=== PATIENT | female | born 1945 | race Caucasian/White ===

== ENCOUNTER 2016-09-06 20:06 | Inpatient (IN) ==
[2016-09-06] MEDS ORDERED: DUONEB NEB STA (20:26)
--- NOTE | 2016-09-06 20:45 | ED.PDOC ---
General ED Provider: Dr. ENDER ROBIN Chief Complaint: Cough Stated Complaint: Patient is a 71 year old female who complains of cough productive of brown and bloody sputum for one week. Also complains of fever. Time Seen by Physician: 20:43 Mode of Arrival: Walk-In Information Source: Patient, Family Exam Limitations: No limitations Primary Care Provider: VALERIY ELAM Nursing and Triage Documentation Reviewed and Agree: Yes Respiratory Complaint Exam - Respiratory Complaint/Exam Onset/Duration: 1 week Symptoms Are: Still present Timing: Constant Initial Severity: Mild Current Severity: Moderate Location: Chest Character: Reports: Productive cough Aggravating: Reports: Weather Alleviating: Reports: None Associated Signs and Symptoms: Reports: Fever, Chills, URI. Denies: Rapid breathing, Dyspnea, Chest pain, Pleuritic chest pain, Wheezing, Hemoptysis, Dizziness, Calf pain, Calf swelling, Edema, Nasal congestion, Hoarseness, Sinus discomfort, Vomiting, Sore throat, Weight loss, Decreased oral intake, Increased thirst, Increased appetite, Increased urination Related History: Denies: Similar episode, Seasonal allergies History of Healthcare-Acquired Pneumonia: No Related Surgical History: Reports: None Pulmonary Embolism Risk Factors: None Cardiac Risk Factors: Reports: None Pseudomonas Risk Factors: Reports: None Status Asthmaticus Risk Factors: Reports: None Home Oxygen Use: No Recent Stress Test: No Recent Echo/LV Function: No Current Antibiotic Use: No Current Asthma Medication Use: No Respiratory Distress: None Inadequate Respiratory Effort: No Dysphagia Present: No Stridor Present: No JVD Present: No Retractions: Not Present Diminished Breath Sounds: No Sinus Tenderness: None Grunting Respirations: No Kussmaul Respirations: No Differential Diagnoses: Pneumonia, Bronchitis Review of Systems - Review Of Systems Constitutional: Reports: Chills, Fever Eyes: Reports: No symptoms Ears, Nose, Mouth, Throat: Reports: No symptoms Respiratory: Reports: Cough Cardiac: Reports: No symptoms GI: Reports: No symptoms : Reports: No symptoms Musculoskeletal: Reports: No symptoms Skin: Reports: No symptoms Neurological: Reports: No symptoms Endocrine: Reports: No symptoms Hematologic/Lymphatic: Reports: No symptoms All Other Systems: Reviewed and Negative Past Medical History - Past Medical History Endocrine: Reports: None Cardiovascular: Reports: Hypertension Respiratory: Reports: None Hematological: Reports: None Gastrointestinal: Reports: None Genitourinary: Reports: None Neuro/Psych: Reports: None Musculoskeletal: Reports: None Cancer: Reports: None Last Menstrual Period: NA Other Pertinent Past Medical History: Obesity - Surgical History General Surgical History: Reports: , Appendectomy, Cholecystectomy, Orthopedic (CARPAL TUNNEL, TRIGGER RELEASE) - Family History Family History: Reports: None - Social History Smoking Status: Never smoker Hx Substance Use: No Alcohol Screening: None - Immunizations Tetanus Shot up to Date: No Physical Exam - Physical Exam Appearance: Ill-appearing, Obese Ill-appearing: Moderate Eyes: AKILAH, EOMI, Conjunctiva clear Neck: Supple Respiratory: Rhonchi (on the right base ) Cardiovascular: No rub, No murmur, Tachycardia Musculoskeletal: Normal strength, ROM intact, No edema, No calf tenderness Skin: Warm, Dry, Normal color Neurological: Sensation intact, Motor intact, Cranial nerves intact, Alert, Oriented Psychiatric: Anxious Interpretation - Radiology Interpretation Radiology Interpretation By: Radiologist Radiology Results: Positive Exam Interpreted: CXR (Right lower lobe pneumonia) - Stripe Matcher Rate: Tachy Rhythm: Sinus Ectopy: None - EKG Interpretation Time of EKG #1: 20:58 Rate: Tachy Rhythm: Sinus Ectopy: None [place]: NL ST Segment: Normal Interpretation: sinus Tachy, left ventricular Hypertrophy. Re-Evaluation - Re-Evaluation Time of Re-Evaluation: 22:56 Status: Improved Vital Signs Stable: Yes Physician Notification - Case Discussed Physician Notified: Dr Elam Time of Notification: 22:57 Critical Care Note - Critical Care Note Total Time (mins): 30 Course - Course Hematology/Chemistry: 09/06/16 20:50 09/06/16 20:50 Orders, Labs, Meds: Lab Review 09/06/16 09/06/16 09/06/16 20:25 20:50 22:10 WBC 35.24 H RBC 4.83 Hgb 13.3 Hct 40.6 MCV 84.1 MCH 27.5 MCHC 32.8 RDW Coeff of Serena 14.5 Plt Count 253 Neutrophils % (Manual) 94.0 H Lymphocytes % (Manual) 3.0 L Monocytes % (Manual) 3.0 D-Dimer (Manual) 1239.63 Puncture Site Lb O2 Saturation 93.0 L ABG pH 7.408 ABG pCO2 33.1 L ABG pO2 64.0 L ABG HCO3 20.9 L ABG Total CO2 22 ABG Base Excess -4 L Sonido Test + FiO2 % 21.0 Sodium 139 Potassium 3.4 L Chloride 105 Carbon Dioxide 20 L Anion Gap 17.4 BUN 21 H Creatinine 1.45 H Estimated GFR (MDRD) 36.00 BUN/Creatinine Ratio 14.48 Glucose 155 H Lactic Acid 31.8 H Calcium 9.3 Total Bilirubin 0.85 AST 23 ALT 20 Alkaline Phosphatase 74 Total Creatine Kinase 151 CK-MB (CK-2) 2.6 CK-MB (CK-2) % 1.69615 Troponin I 0.0230 B-Natriuretic Peptide 72 Total Protein 7.8 Albumin 3.2 L Globulin 4.6 Albumin/Globulin Ratio 0.70 Procalcitonin 5.09 Urine Color Yellow Urine Clarity Slightly Urine pH 5.5 Ur Specific Downey 1.020 Urine Protein 2+ Urine Glucose (UA) Negative Urine Ketones Negative Urine Blood Negative Urine Nitrite Negative Urine Bilirubin 1+ Urine Urobilinogen 1.0 Ur Leukocyte Esterase Trace Urine Microscopic WBC 2-5 Ur Squamous Epith Cells 2-5 Amorphous Sediment 2+ Urine Bacteria 1+ Influenza A (Rapid) Negative Influenza B (Rapid) Negative Orders Category Date Time Status ADMIT PATIENT INPATIENT .TO SCU (MONITORED BED) ADMISSION 09/06/16 22:47 Ordered ABG DRAW REQUEST Stat CARDIO 09/06/16 20:25 Ordered EKG-(ED ONLY) Stat CARDIO 09/06/16 20:40 Ordered NEBULIZER TREATMENT Routine CARDIO 09/06/16 22:51 Ordered NEBULIZER TREATMENT Stat CARDIO 09/06/16 20:27 Ordered OXYGEN Routine CARDIO 09/06/16 22:47 Ordered ACTIVITY .Early Mobilization for VTE Prevention CARE 09/06/16 22:48 Ordered INTAKE & OUTPUT Q8HR CARE 09/06/16 22:47 Ordered TELEMETRY MONITORING TELE CARE 09/06/16 22:48 Ordered VITAL SIGNS Q4HR CARE 09/06/16 22:48 Ordered REGULAR DIET DIETARY 09/06/16 Breakfast Ordered ED IV/MEDIPORT/POWERPORT .ONCE EMERGENCY 09/06/16 20:25 Active ABG Stat LAB 09/06/16 20:25 Completed B-TYPE NATRIURETIC PEPTIDE Stat LAB 09/06/16 20:50 Completed BASIC METABOLIC PANEL DAILY@0600 LAB 09/07/16 06:00 Ordered BASIC METABOLIC PANEL DAILY@0600 LAB 09/08/16 06:00 Ordered BASIC METABOLIC PANEL DAILY@0600 LAB 09/09/16 06:00 Ordered BASIC METABOLIC PANEL DAILY@0600 LAB 09/10/16 06:00 Ordered BASIC METABOLIC PANEL DAILY@0600 LAB 09/11/16 06:00 Ordered BASIC METABOLIC PANEL DAILY@0600 LAB 09/12/16 06:00 Ordered BASIC METABOLIC PANEL DAILY@0600 LAB 09/13/16 06:00 Ordered BASIC METABOLIC PANEL DAILY@0600 LAB 09/14/16 06:00 Ordered BASIC METABOLIC PANEL DAILY@0600 LAB 09/15/16 06:00 Ordered BASIC METABOLIC PANEL DAILY@0600 LAB 09/16/16 06:00 Ordered BASIC METABOLIC PANEL DAILY@0600 LAB 09/17/16 06:00 Ordered BASIC METABOLIC PANEL DAILY@0600 LAB 09/18/16 06:00 Ordered BASIC METABOLIC PANEL DAILY@0600 LAB 09/19/16 06:00 Ordered BASIC METABOLIC PANEL DAILY@0600 LAB 09/20/16 06:00 Ordered BASIC METABOLIC PANEL DAILY@0600 LAB 09/21/16 06:00 Ordered BASIC METABOLIC PANEL DAILY@0600 LAB 09/22/16 06:00 Ordered BASIC METABOLIC PANEL DAILY@0600 LAB 09/23/16 06:00 Ordered BASIC METABOLIC PANEL DAILY@0600 LAB 09/24/16 06:00 Ordered BASIC METABOLIC PANEL DAILY@0600 LAB 09/25/16 06:00 Ordered BASIC METABOLIC PANEL DAILY@06 LAB 09/26/16 06:00 Ordered BLOOD CULTURE Stat LAB 09/06/16 20:50 Received CBC W/ AUTO DIFF DAILY@06 LAB 09/07/16 06:00 Ordered CBC W/ AUTO DIFF DAILY@0600 LAB 09/08/16 06:00 Ordered CBC W/ AUTO DIFF DAILY@06 LAB 09/09/16 06:00 Ordered CBC W/ AUTO DIFF DAILY@0600 LAB 09/10/16 06:00 Ordered CBC W/ AUTO DIFF DAILY@0600 LAB 09/11/16 06:00 Ordered CBC W/ AUTO DIFF DAILY@0600 LAB 09/12/16 06:00 Ordered CBC W/ AUTO DIFF DAILY@06 LAB 09/13/16 06:00 Ordered CBC W/ AUTO DIFF DAILY@0600 LAB 09/14/16 06:00 Ordered CBC W/ AUTO DIFF DAILY@0600 LAB 09/15/16 06:00 Ordered CBC W/ AUTO DIFF DAILY@0600 LAB 09/16/16 06:00 Ordered CBC W/ AUTO DIFF DAILY@06 LAB 09/17/16 06:00 Ordered CBC W/ AUTO DIFF DAILY@0600 LAB 09/18/16 06:00 Ordered CBC W/ AUTO DIFF DAILY@0600 LAB 09/19/16 06:00 Ordered CBC W/ AUTO DIFF DAILY@0600 LAB 09/20/16 06:00 Ordered CBC W/ AUTO DIFF DAILY@0600 LAB 09/21/16 06:00 Ordered CBC W/ AUTO DIFF DAILY@0600 LAB 09/22/16 06:00 Ordered CBC W/ AUTO DIFF DAILY@0600 LAB 09/23/16 06:00 Ordered CBC W/ AUTO DIFF DAILY@0600 LAB 09/24/16 06:00 Ordered CBC W/ AUTO DIFF DAILY@0600 LAB 09/25/16 06:00 Ordered CBC W/ AUTO DIFF DAILY@0600 LAB 09/26/16 06:00 Ordered CBC W/ AUTO DIFF Stat LAB 09/06/16 20:50 Completed COMPREHENSIVE METABOLIC PANEL Stat LAB 09/06/16 20:50 Completed CREATINE KINASE Stat LAB 09/06/16 20:50 Completed D-DIMER Stat LAB 09/06/16 20:50 Completed FLU A & B RAPID TEST [RAPID FLU A/B] Stat LAB 09/06/16 22:10 Completed LACTIC ACID Stat LAB 09/06/16 20:50 Completed MANUAL DIFFERENTIAL Stat LAB 09/06/16 20:50 Completed PROCALCITONIN Stat LAB 09/06/16 20:50 Completed TROPONIN I Stat LAB 09/06/16 20:50 Completed URINALYSIS C & S IF INDICATED Stat LAB 09/06/16 22:10 Completed URINE CULTURE Stat LAB 09/06/16 22:24 Received 0.9 % Sodium Chloride [Saline Flush] MEDS 09/06/16 20:25 Ordered 1 syr IVF PRN PRN Acetaminophen [Tylenol] MEDS 09/06/16 22:47 Ordered 650 mg PO Q4H PRN Enoxaparin Sodium [Lovenox] MEDS 09/06/16 23:00 Ordered 110 mg SUBCUT Q12HR Ipratropium/Albuterol Neb [Duoneb] MEDS 09/06/16 20:26 Discontinued 1 vial NEB ONCE STA Ipratropium/Albuterol Neb [Duoneb] MEDS 09/07/16 06:00 Ordered 1 vial NEB RTQID Levofloxacin/D5w [Levaquin] 150 ml MEDS 09/06/16 21:51 Discontinued IV .STK-MED Levofloxacin/D5w [Levaquin] 500 mg MEDS 09/07/16 21:00 Ordered Premix 100 ml D5w 1 bag IV DAILY Levofloxacin/D5w [Levaquin] 750 mg MEDS 09/06/16 21:19 Discontinued Premix 150 ml D5w 1 bag IV ONCE Ondansetron HCl/Pf [Zofran 4 mg/2 ml] MEDS 09/06/16 22:47 Ordered 4 mg IVP Q6H PRN Sodium Chloride 0.9% [Sodium Chloride] 1,000 ml MEDS 09/06/16 23:00 Ordered IV 150 mls/hr Sodium Chloride 0.9% [Sodium Chloride] 1,000 ml MEDS 09/06/16 21:54 Discontinued IV BOLUS RESUSCITATION STATUS Routine OTHERS 09/06/16 22:47 Ordered CHEST, 2 VIEWS PA & LAT Stat RADS 09/06/16 20:25 Completed Medications Generic Name Dose Route Start Last Admin Trade Name Freq PRN Reason Stop Dose Admin Sodium Chloride 1 syr 09/06/16 20:25 09/06/16 21:46 Saline Flush IVF 1 syr PRN PRN Administration To flush IV Discontinued Medications Generic Name Dose Route Start Last Admin Trade Name Freq PRN Reason Stop Dose Admin Albuterol/Ipratropium 1 vial 09/06/16 20:26 09/06/16 20:33 Duoneb NEB 09/06/16 20:27 1 vial ONCE STA Administration Levofloxacin/Dextrose 750 mg/ 150 mls @ 100 mls/hr 09/06/16 21:19 09/06/16 21 :46 Dextrose IV 09/06/16 22:48 100 mls/hr ONCE STA Administration Sodium Chloride 1,000 mls @ 1,000 mls/hr 09/06/16 21:54 09/06/16 22:04 Sodium Chloride IV 09/06/16 22:53 1,000 mls/hr BOLUS STA Administration Vital Signs: Temp Pulse Resp BP Pulse Ox 09/06/16 20:07 99.7 F H 126 H 24 131/74 91 L Departure - Departure Time of Disposition: 23:05 Disposition: ADMITTED INPATIENT Discharge Problem: Right lower lobe pneumonia Qualifiers: Pneumonia type: due to unspecified organism Qualifier Code: (J18.1) Lobar pneumonia, unspecified organism Sepsis Qualifiers: Sepsis type: sepsis due to unspecified organism Qualifier Code: (A41.9) Sepsis , unspecified organism Condition: Serious Pt referred to PMD for follow-up: No (Admitted ) Allergies/Adverse Reactions: Allergies No Known Allergies Allergy (Verified 09/06/16 20:17) Home Medications: Ambulatory Orders Aspirin/Calcium Carbonate/Mag [Aspirin Buffered 325 mg Tab] 325 mg PO QAM Cholecalciferol (Vitamin D3) [Vitamin D3] 1,000 mg PO BID 10/17/13 Enalapril Maleate [Vasotec] 10 mg PO QAM 10/17/13 Pantoprazole Sodium [Protonix] 40 mg PO QAM 10/17/13 Triamterene/Hydrochlorothiazid [Dyazide] 25 - 37.5 mg PO QAM 10/17/13 Alprazolam [Xanax] 0.5 mg PO DAILY 09/06/16 Venlafaxine HCl [Effexor] 75 mg PO DAILY 09/06/16 Disposition Discussed With: Patient, Family
[2016-09-06 20:52] LABS: ABG BASE EXCESS -4 (-2.0-2.0); ABG HCO3 20.9 (22.0-26.0); ABG PCO2 33.1 mmHg (35-45); ABG PH 7.408 (7.35-7.45); ABG TCO2 22 (22.0-28.0)
[2016-09-06 20:58] LABS: HEMATOCRIT 40.6 % (37.0-47.0); HEMOGLOBIN 13.3 g/dl (12.0-16.0); MEAN CORPUSCULAR HEMOGLOBIN 27.5 pg (27.0-31.0); MEAN CORPUSCULAR HGB CONC 32.8 (31.8-35.4); MEAN CORPUSCULAR VOLUME 84.1 fl (81.0-99.0); PLATELET COUNT 253 10^3/uL (140-440); RED BLOOD COUNT 4.83 10^6/ul (4.20-5.40); WHITE BLOOD COUNT 35.24 K/ul (4.6-10.2)
[2016-09-06 21:07] LABS: ANISOCYTOSIS NOT PRESENT (NOT PRESENT)
[2016-09-06] MEDS ORDERED: LEVAQUIN 750 MG in PREMIX 150 ML D5W 1 BAG IV STA (21:19)
--- NOTE | 2016-09-06 21:33 | DI ---
Exam: Chest two-view History: Cough FINDINGS: Normal cardiomediastinal contours. Normal pulmonary vasculature. Consolidative opacity of the anterior lateral right middle lobe. Atelectasis or consolidation in the left base. The uppe r lungs are clear. Normal cardiomediastinal contours. No acute chest wall abnormality. Impression: 1. Consolidative pneumonia in the right lung base 2. Atelectasis versus pneumonia in the left lung base.
[2016-09-06 21:34] LABS: ALBUMIN 3.2 g/dL (3.4-5.0); ALBUMIN/GLOBULIN RATIO 0.7; ANION GAP 17.4; BILIRUBIN,TOTAL 0.85 mg/dL (0.00-1.20); BUN/CREATININE RATIO 14.48; CALCIUM 9.3 mg/dL (8.2-10.2); CREATININE 1.45 mg/dL (0.60-1.30); POTASSIUM 3.4 mmol/L (3.5-5.10); TOTAL PROTEIN 7.8 g/dL (5.8-8.1); TROPONIN I 0.023 ng/ml (0.0000-0.4000)
[2016-09-06 21:35] LABS: CREATINE KINASE MB 2.6 ng/ml (0.0-3.6)
[2016-09-06] MEDS ORDERED: LEVAQUIN 150 ML IV ONE (21:51)
[2016-09-06] MEDS ORDERED: SODIUM CHLORIDE 1,000 ML IV STA (21:54)
[2016-09-06 22:17] LABS: BILIRUBIN,URINE 1+ (NEGATIVE); KETONES,URINE Negative (NEGATIVE); LEUKOCYTE ESTERASE ,URINE Trace (NEGATIVE); NITRITE,URINE Negative (NEGATIVE); PH,URINE 5.5 (5-9); PROTEIN,URINE 2+ (NEGATIVE); URINE, BLOOD Negative (NEGATIVE)
[2016-09-06 22:23] LABS: ADD URINE MICROSCOPIC YES
[2016-09-06 22:24] LABS: BACTERIA,URINE 1+ (NOT PRESENT)
[2016-09-06 22:28] LABS: FLU INTERNAL QC INTERNAL QC VALID; RAPID FLU A NEGATIVE (NEGATIVE); RAPID FLU B NEGATIVE (NEGATIVE)
[2016-09-06] MEDS ORDERED: ZOFRAN 4 MG/2 ML IVP PRN (22:47)
[2016-09-06] MEDS ORDERED: TYLENOL PO PRN (22:47)
[2016-09-06] MEDS ORDERED: LOVENOX SUBCUT SCH (23:00)
[2016-09-06 23:27] VITALS: BMI 47.0
[2016-09-07] MEDS ORDERED: LOVENOX ONE ×2 (01:42)
[2016-09-07 03:19] LABS: BASOPHILS # (AUTO) 0.1 K/uL (0-0.2); BASOPHILS % (AUTO) 0.3 % (0.0-3.0); HEMATOCRIT 37.4 % (37.0-47.0); HEMOGLOBIN 11.8 g/dl (12.0-16.0); IMMATURE GRANULOCYTE % (AUTO) 2.1 % (0.0-5.0); LYMPHOCYTES # (AUTO) 1.3 K/uL (0.60-3.4); LYMPHOCYTES % (AUTO) 4.5 (10.0-50.0); MEAN CORPUSCULAR HEMOGLOBIN 27.1 pg (27.0-31.0); MEAN CORPUSCULAR HGB CONC 31.6 (31.8-35.4); MONOCYTES % (AUTO) 3.4 (0-10); NEUTROPHILS # (AUTO) 26.7 K/ul (2.0-6.9); NEUTROPHILS % (AUTO) 89.7; PLATELET COUNT 210 10^3/uL (140-440); RED BLOOD COUNT 4.35 10^6/ul (4.20-5.40); WHITE BLOOD COUNT 29.77 K/ul (4.6-10.2)
[2016-09-07 03:35] LABS: ANION GAP 14.4; BUN/CREATININE RATIO 18.25; CALCIUM 8.6 mg/dL (8.2-10.2); CREATININE 1.26 mg/dL (0.60-1.30); POTASSIUM 3.4 mmol/L (3.5-5.10)
[2016-09-07] MEDS: SODIUM CHLORIDE 1,000 ML IV SCH ×3 (04:29→11:05)
[2016-09-07] MEDS: DUONEB NEB SCH ×4 (05:05→19:32)
[2016-09-07] MEDS: ASPIRIN EC PO SCH (08:40)
[2016-09-07] MEDS: VASOTEC PO SCH (08:41)
[2016-09-07] MEDS: PROTONIX PO SCH (08:41)
[2016-09-07] MEDS: VITAMIN D PO SCH ×2 (08:42→21:38)
[2016-09-07] MEDS: NON-FORMULARY MEDICATION (Venlafaxine Hcl 75 MG) PO SCH (08:42)
[2016-09-07] MEDS: XANAX PO SCH (08:42)
[2016-09-07] MEDS ORDERED: CHOLECALCIFEROL 1000 MG PO SCH (09:00)
[2016-09-07] MEDS ORDERED: LOVENOX SUBCUT SCH (09:00)
[2016-09-07] MEDS ORDERED: NON-FORMULARY MEDICATION (Enalapril Maleate [Vasotec] 10 MG) PO SCH ×22 (09:00)
--- NOTE | 2016-09-07 13:03 | NM ---
EXAM: Ventilation-perfusion lung scan HISTORY: Elevated D-dimer COMPARISON: Chest x-ray On 09/06/2016 showed right lung base consolidation. Left lung base atelecta sis versus pneumonia. TECHNIQUE: Patient was injected 5.1 mCi of technetium 99m labeled MAA intravenously. The patient wa s given 31.1 mCi of technetium 99m DTPA aerosol for ventilation imaging. FINDINGS: No segmental or subsegmental perfusion defect is identified. Aerosol distribution is homo geneous in both lung patel throughout. IMPRESSION: Normal VQ scan
[2016-09-07] MEDS ORDERED: VANCOMYCIN 2 GM in SODIUM CHLORIDE 500 ML IV STA (14:01)
[2016-09-07] MEDS ORDERED: AMBIEN PO PRN (19:41)
[2016-09-07] MEDS: LEVAQUIN 750 MG in PREMIX 150 ML D5W 1 BAG IV SCH (20:06)
[2016-09-07] MEDS ORDERED: LEVAQUIN 500 MG in PREMIX 100 ML D5W 1 BAG IV SCH (21:00)
[2016-09-08] MEDS: SODIUM CHLORIDE 1,000 ML IV SCH ×4 (00:05→15:46)
[2016-09-08] MEDS: DUONEB NEB SCH ×4 (05:21→20:09)
[2016-09-08 05:26] LABS: BASOPHILS # (AUTO) 0.1 K/uL (0-0.2); BASOPHILS % (AUTO) 0.3 % (0.0-3.0); EOSINOPHILS # (AUTO) 0.1 K/ul (0.0-0.7); EOSINOPHILS % (AUTO) 0.4 % (0.0-7.0); HEMATOCRIT 35.8 % (37.0-47.0); HEMOGLOBIN 11.5 g/dl (12.0-16.0); IMMATURE GRANULOCYTE % (AUTO) 0.6 % (0.0-5.0); LYMPHOCYTES # (AUTO) 1.2 K/uL (0.60-3.4); MEAN CORPUSCULAR HEMOGLOBIN 27.5 pg (27.0-31.0); MEAN CORPUSCULAR HGB CONC 32.1 (31.8-35.4); MEAN CORPUSCULAR VOLUME 85.6 fl (81.0-99.0); MONOCYTES # (AUTO) 0.4 K/uL (0.4-2.0); MONOCYTES % (AUTO) 2.5 (0-10); NEUTROPHILS # (AUTO) 15.2 K/ul (2.0-6.9); NEUTROPHILS % (AUTO) 89.2; PLATELET COUNT 209 10^3/uL (140-440); RED BLOOD COUNT 4.18 10^6/ul (4.20-5.40); WHITE BLOOD COUNT 16.98 K/ul (4.6-10.2)
[2016-09-08 05:39] LABS: ANION GAP 12.2; BUN/CREATININE RATIO 19.54; CALCIUM 8.4 mg/dL (8.2-10.2); CREATININE 0.87 mg/dL (0.60-1.30); POTASSIUM 3.2 mmol/L (3.5-5.10)
[2016-09-08] MEDS: PROTONIX PO SCH (05:48)
[2016-09-08] MEDS: VITAMIN D PO SCH ×2 (08:59→20:28)
[2016-09-08] MEDS: ASPIRIN EC PO SCH (08:59)
[2016-09-08] MEDS: XANAX PO SCH (09:00)
[2016-09-08] MEDS: VASOTEC PO SCH (09:00)
[2016-09-08] MEDS: LOVENOX SUBCUT SCH (09:00)
[2016-09-08] MEDS: VANCOMYCIN 750 MG in SODIUM CHLORIDE 250 ML IV SCH ×2 (09:02→21:49)
[2016-09-08] MEDS: NON-FORMULARY MEDICATION (Venlafaxine Hcl 75 MG) PO SCH (09:02)
--- NOTE | 2016-09-08 10:09 | HP ---
SOURCE: The source of this information is prior knowledge of the patient, review of her office records, her current chart as well as discussion with she and ER individuals; all see reliable. PATIENT PROFILE: The patient is a 71-year-0ld female resident of [place]; she was very cooperative. CHIEF COMPLAINT: "She has pneumonia." BRIEF HISTORY OF PRESENT ILLNESS: She was ill for about one week with nasal congestion and cough. She worsened, her family became very concerned when she had some hemoptysis and they forced her to come to the ER. There, she was found to have right and left lower lobe infiltrate, leukocytosis to 35,000. A lactic acid of 31.8, potassium 3.4, GFR of 36, D. dimer 1,239, procalcitonin at 5.09. She did have influenza A and B that were negative, a urinalysis that revealed only 2 to 5 WBCs and her vital signs were stable. She was not hypoxic. She was therefore admitted for community acquired pneumonia with potential associated sepsis. Initial plan was to give fluid bolus, culture urine and blood, monitor blood pressure in response to the fluids closely; start empiric antibiotics. PAST HISTORY: CHILDHOOD: Unremarkable. ALLERGIES/INTOLERANCE: LEXAPRO (FATIGUE). MEDICATIONS: (HOME) 1. Dyazide/triampterine- Hydrochlorothiazide 25/37.5 mg one by mouth each day 2. Protonix/Pantropazole 40 mg one by mouth each day 3. Vasotec/Enalapril 10 mg one by mouth each day 4. Aspirin/Calcium Carbonate - buffered aspirin 325 mg one a day 5. Vitamin D3 - Cholecalciferol 1000 international units one by mouth twice a day 6. Xanax/Alprazolam 0.5 mg one by mouth each day 7. Effexor/Venlafaxine 75 mg p.o. one daily HOSPITALIZATIONS/SURGERIES/PROCEDURES: She is 3, Para 3, AB 0. She had colonoscopy with hemorrhoid finding, Dr. Diamante Mauricio on 10/11/06 to repeat in 5 years. She had a lap gallbladder at [facility] 10/09/1998, a tubal at 36 and a hospitalization at [facility] 11/29 through 12/03/03 with orthostatic hypotension and contusion left occipital area. FAMILY HISTORY: Hypertension in father and brother, heart disease in father, brain aneurysm in paternal grandfather, unknown cancer in brother. No breast or colon cancer in the family. HABITS: Never smoked or used alcohol. SOCIAL HISTORY: 1961. Her 04/2015 of Alzheimer's and she has three children. She lives alone. REVIEW OF SYSTEMS: GENERAL: Prior to this, her energy level was good and there had been no injuries. Since this, there has been fever and chills. No falls or injuries. INTEGUMENT: No rash or open sores. HEENT: Some nasal congestion and sore throat. NECK: No pain or mass. CHEST: A little sore with cough; no wheeze. CARDIOVASCULAR: No exertional chest pain or ankle edema. GI: No nausea, vomiting, diarrhea, melena or hematochezia. : No dysuria or frequency. MUSCULOSKELETAL: No red or swollen joints; no joints are sore. NEUROLOGIC: No slurred speech or weakness of extremities; she is able to walk with only mild weakness PSYCHIATRIC: She tends to be a little on the depressed side. She denies suicidal ideation. PHYSICAL EXAMINATION: VITALS: Height 5'2", weight 257, temperature 97.8, pulse 116/sinus, respirations 20, BP 113/58. GENERAL: Younger than stated age white female in no acute distress. INTEGUMENT: Eyegrounds are pink, nonicteric sclerae. Mucous membranes are moist. No ankle edema. HEENT: Facial symmetry. Pupils equal, round, extraocular movements intact. NECK: Supple. No visible lymphadenopathy, thyromegaly, mass seen or felt and supple. CHEST: Clear with a few crackles at the bases. CARDIOVASCULAR: S1, S2 regular without murmur or peripheral edema. Distal pulses intact. No carotid bruit. GI: Obese. No rebound, guarding, mass or tenderness. MUSCULOSKELETAL/NEUROLOGIC: No red or swollen joints. Moves all four quadrants equally. Cream Ripener are equal. Facial symmetry. Speech is clear. PSYCHIATRIC: Oriented times three, personable and interactive with intact short and long-term memory. ASSESSMENT/PROBLEM LIST: 0. 71-year-old white female - advanced age. 1. Allergies/intolerances - see above. 2. Procedural history - see above. 3. Family history - see above. 4. Polyp disease by colonoscopy. 5. Gastric ulcer by EGD. 6. Hemorrhoidal disease by colonoscopy. 7. Gastroesophageal reflux. 8. Anxiety. 9. History of depression. 10. Elevated fasting glucose. 11. Hypertension. 12. Obesity. 13. Degenerative joint disease. 14. Degenerative joint disease of spine. 15. Neck pain - intermittent. 16. Back pain - intermittent. 17. Menopausal. 18. Hyperlipidemia. 19. History of phlebitis. 20. Urolithiasis history. 21. Twin A REASON FOR ADMISSION: # Cough # Pneumonia # Elevated lactic acid, leukocytosis; suggestive for sepsis # Hemoptysis # Renal insufficiency - perhaps acute PLAN: 1. Medicines - we are including starting with Levaquin and nebulized bronchodilators. 2. Laboratories will be followed daily. 3. Fluids as needed. 4. Repeat chest x-rays on and off. 5. Watch clinically with serial exams. 6. Discharge plan from the onset will be home. KARTHIK
[2016-09-08] MEDS: K-DUR PO SCH (20:28)
[2016-09-08] MEDS: LEVAQUIN 750 MG in PREMIX 150 ML D5W 1 BAG IV SCH (20:29)
[2016-09-09 05:02] LABS: BASOPHILS # (AUTO) 0.1 K/uL (0-0.2); BASOPHILS % (AUTO) 0.7 % (0.0-3.0); EOSINOPHILS # (AUTO) 0.2 K/ul (0.0-0.7); HEMOGLOBIN 11.4 g/dl (12.0-16.0); IMMATURE GRANULOCYTE % (AUTO) 0.4 % (0.0-5.0); LYMPHOCYTES # (AUTO) 1.1 K/uL (0.60-3.4); LYMPHOCYTES % (AUTO) 12.1 (10.0-50.0); MEAN CORPUSCULAR HGB CONC 31.7 (31.8-35.4); MEAN CORPUSCULAR VOLUME 85.3 fl (81.0-99.0); MONOCYTES # (AUTO) 0.3 K/uL (0.4-2.0); MONOCYTES % (AUTO) 3.8 (0-10); NEUTROPHILS # (AUTO) 7.3 K/ul (2.0-6.9); PLATELET COUNT 225 10^3/uL (140-440); RED BLOOD COUNT 4.22 10^6/ul (4.20-5.40)
[2016-09-09] MEDS: DUONEB NEB SCH ×4 (05:06→20:59)
[2016-09-09 05:27] LABS: ANION GAP 12.5; BUN/CREATININE RATIO 15.29; CALCIUM 8.3 mg/dL (8.2-10.2); CREATININE 0.85 mg/dL (0.60-1.30); POTASSIUM 3.5 mmol/L (3.5-5.10)
[2016-09-09] MEDS: PROTONIX PO SCH (06:19)
[2016-09-09] MEDS: ASPIRIN EC PO SCH (08:37)
[2016-09-09] MEDS: VASOTEC PO SCH (08:37)
[2016-09-09] MEDS: K-DUR PO SCH ×2 (08:37→20:21)
[2016-09-09] MEDS: VITAMIN D PO SCH ×2 (08:37→20:21)
[2016-09-09] MEDS: LOVENOX SUBCUT SCH (08:38)
[2016-09-09] MEDS: VANCOMYCIN 750 MG in SODIUM CHLORIDE 250 ML IV SCH (08:38)
[2016-09-09] MEDS: XANAX PO SCH (08:49)
--- NOTE | 2016-09-09 09:25 | PN ---
DATE OF SERVICE: 09/09/16 CHIEF COMPLAINT: "I have pneumonia." SUBJECTIVE: The patient was admitted through the ER from home; with 7 days of progressive cough and others. In the Emergency Department, she was found to have bilateral lower lobe infiltrates and excessive white count, a positive lactic acid and was felt to have pneumonia with sepsis. Fortunately, she was not hypotensive or hypoxic. She was fluid bolused, started on Levaquin, nebulized bronchodilators ; along the way she has had positive blood cultures for probably staph. Vancomycin was ordered. Her initial GFRs are in the 37 range and this influenced the dosing of all of her antibiotics. She has progressively felt better with improvement in cough, chest discomfort, generalized malaise and fatigue. She is eating with no diarrhea and did have a bowel movement today. She has no dysuria. She is not very active because she has been in the Special Care Unit. OBJECTIVE: V/S: Temperature 97.2, pulse 102, respirations 20, BP 149/82. GENERAL: Pleasant and purposeful conversation. CHEST: Clear. CARDIOVASCULAR: S1, S2 without murmur or peripheral edema. GI: Obese, nontender. PSYCHIATRIC: Alert, oriented times three. LABS/X-RAYS: White count 16.8 down from higher. Hemoglobin 11.5 without signs of bleeding. Chemistries show potassium 3.2 about the same as yesterday. Note: GFR is back up to 64. ASSESSMENT: # Right and left lower lobe pneumonia - community exposed. # Sepsis - associated with elevated lactic acid (leukocytosis). # Malaise # Cough # Chest pain - related to above. # Elevated D. dimer with negative VQ scan. # Positive blood culture; all we know is gram positive at this point - cover with Vancomycin. # Hypopotassemia - note she uses Dyazide. PLAN: 1. Lock IV. 2. Continue to encourage fluids. 3. Watch electrolytes. 4. Potassium oral. 5. Recheck chest x-ray tomorrow. 6. Increase activity. 7. Discussed at least 5 days of Vancomycin if this is a true staph bacteremia. 8. Discharge plan at this point is home with family. KARTHIK
[2016-09-09] MEDS: NON-FORMULARY MEDICATION (Venlafaxine Hcl 75 MG) PO SCH (09:49)
--- NOTE | 2016-09-09 10:45 | DI ---
EXAM: CHEST FRONTAL AND LATERAL VIEWS HISTORY: Follow-up pneumonia. COMPARISON: 09/06/2016 FINDINGS: Heart size upper limit normal, stable. There is at least mild aortic atherosclerosis. C urrently no evidence of consolidated pneumonia or acute infiltrate. There is no vascular congestion , pneumothorax or pleural fluid. IMPRESSION: Lungs currently demonstrate no convincing evidence of consolidated pneumonia.
[2016-09-09] MEDS: EFFEXOR XR PO SCH (14:22)
[2016-09-09] MEDS: LEVAQUIN 750 MG in PREMIX 150 ML D5W 1 BAG IV SCH (20:21)
[2016-09-10 05:15] LABS: BASOPHILS % (AUTO) 0.4 % (0.0-3.0); EOSINOPHILS # (AUTO) 0.3 K/ul (0.0-0.7); EOSINOPHILS % (AUTO) 3.8 % (0.0-7.0); HEMATOCRIT 36.4 % (37.0-47.0); HEMOGLOBIN 11.4 g/dl (12.0-16.0); IMMATURE GRANULOCYTE % (AUTO) 0.7 % (0.0-5.0); LYMPHOCYTES # (AUTO) 1.1 K/uL (0.60-3.4); LYMPHOCYTES % (AUTO) 16.4 (10.0-50.0); MEAN CORPUSCULAR HEMOGLOBIN 27.1 pg (27.0-31.0); MEAN CORPUSCULAR HGB CONC 31.3 (31.8-35.4); MEAN CORPUSCULAR VOLUME 86.7 fl (81.0-99.0); MONOCYTES # (AUTO) 0.4 K/uL (0.4-2.0); MONOCYTES % (AUTO) 6.4 (0-10); NEUTROPHILS % (AUTO) 72.3; PLATELET COUNT 211 10^3/uL (140-440); WHITE BLOOD COUNT 6.89 K/ul (4.6-10.2)
[2016-09-10] MEDS: DUONEB NEB SCH ×2 (05:25→09:50)
[2016-09-10 05:35] LABS: ANION GAP 10.9; BUN/CREATININE RATIO 16.04; CALCIUM 8.7 mg/dL (8.2-10.2); CREATININE 0.81 mg/dL (0.60-1.30); POTASSIUM 3.9 mmol/L (3.5-5.10)
[2016-09-10] MEDS: PROTONIX PO SCH (07:02)
[2016-09-10] MEDS: ASPIRIN EC PO SCH (09:04)
[2016-09-10] MEDS: VITAMIN D PO SCH (09:04)
[2016-09-10] MEDS: VASOTEC PO SCH (09:04)
[2016-09-10] MEDS: EFFEXOR XR PO SCH (09:04)
[2016-09-10] MEDS: XANAX PO SCH (09:04)
[2016-09-10] MEDS: K-DUR PO SCH (09:04)
[2016-09-10] MEDS: LOVENOX SUBCUT SCH (09:04)
[2016-09-10 10:40] VITALS: BP 138/78; TEMP 96.9
--- NOTE | 2016-09-12 09:28 | DS ---
PATIENT PROFILE: The patient is a 71-year-0ld female resident of [place]; she was very cooperative. CHIEF COMPLAINT: "She has pneumonia." BRIEF HISTORY OF PRESENT ILLNESS: She was ill for about one week with nasal congestion and cough. She worsened, her family became very concerned when she had some hemoptysis and they forced her to come to the ER. There, she was found to have right and left lower lobe infiltrate, leukocytosis to 35,000. A lactic acid of 31.8, potassium 3.4, GFR of 36, D. dimer 1,239, procalcitonin at 5.09. She did have influenza A and B that were negative, a urinalysis that revealed only 2 to 5 WBCs and her vital signs were stable. She was not hypoxic. She was therefore admitted for community acquired pneumonia with potential associated sepsis. Initial plan was to give fluid bolus, culture urine and blood, monitor blood pressure in response to the fluids closely; start empiric antibiotics. PAST HISTORY: CHILDHOOD: Unremarkable. ALLERGIES/INTOLERANCE: LEXAPRO (FATIGUE). MEDICATIONS: (HOME) 1. Dyazide/triampterine- Hydrochlorothiazide 25/37.5 mg one by mouth each day 2. Protonix/Pantropazole 40 mg one by mouth each day 3. Vasotec/Enalapril 10 mg one by mouth each day 4. Aspirin/Calcium Carbonate - buffered aspirin 325 mg one a day 5. Vitamin D3 - Cholecalciferol 1000 international units one by mouth twice a day 6. Xanax/Alprazolam 0.5 mg one by mouth each day 7. Effexor/Venlafaxine 75 mg p.o. one daily HOSPITALIZATIONS/SURGERIES/PROCEDURES: She is 3, Para 3, AB 0. She had colonoscopy with hemorrhoid finding, Dr. Diamante Mauricio on 10/11/06 to repeat in 5 years. She had a lap gallbladder at [facility] 10/09/1998, a tubal at 36 and a hospitalization at [facility] 11/29 through 12/03/03 with orthostatic hypotension and contusion left occipital area. FAMILY HISTORY: Hypertension in father and brother, heart disease in father, brain aneurysm in paternal grandfather, unknown cancer in brother. No breast or colon cancer in the family. HABITS: Never smoked or used alcohol. SOCIAL HISTORY: 1961. Her 04/2015 of Alzheimer's and she has three children. She lives alone. REVIEW OF SYSTEMS: GENERAL: Prior to this, her energy level was good and there had been no injuries. Since this, there has been fever and chills. No falls or injuries. INTEGUMENT: No rash or open sores. HEENT: Some nasal congestion and sore throat. NECK: No pain or mass. CHEST: A little sore with cough; no wheeze. CARDIOVASCULAR: No exertional chest pain or ankle edema. GI: No nausea, vomiting, diarrhea, melena or hematochezia. : No dysuria or frequency. MUSCULOSKELETAL: No red or swollen joints; no joints are sore. NEUROLOGIC: No slurred speech or weakness of extremities; she is able to walk with only mild weakness PSYCHIATRIC: She tends to be a little on the depressed side. She denies suicidal ideation. PHYSICAL EXAMINATION: VITALS: Height 5'2", weight 257, temperature 97.8, pulse 116/sinus, respirations 20, BP 113/58. GENERAL: Younger than stated age white female in no acute distress. INTEGUMENT: Eyegrounds are pink, nonicteric sclerae. Mucous membranes are moist. No ankle edema. HEENT: Facial symmetry. Pupils equal, round, extraocular movements intact. NECK: Supple. No visible lymphadenopathy, thyromegaly, mass seen or felt and supple. CHEST: Clear with a few crackles at the bases. CARDIOVASCULAR: S1, S2 regular without murmur or peripheral edema. Distal pulses intact. No carotid bruit. GI: Obese. No rebound, guarding, mass or tenderness. MUSCULOSKELETAL/NEUROLOGIC: No red or swollen joints. Moves all four quadrants equally. [employer] are equal. Facial symmetry. Speech is clear. PSYCHIATRIC: Oriented times three, personable and interactive with intact short and long-term memory. ASSESSMENT/PROBLEM LIST: 0. 71-year-old white female - advanced age. 1. Allergies/intolerances - see above. 2. Procedural history - see above. 3. Family history - see above. 4. Polyp disease by colonoscopy. 5. Gastric ulcer by EGD. 6. Hemorrhoidal disease by colonoscopy. 7. Gastroesophageal reflux. 8. Anxiety. 9. History of depression. 10. Elevated fasting glucose. 11. Hypertension. 12. Obesity. 13. Degenerative joint disease. 14. Degenerative joint disease of spine. 15. Neck pain - intermittent. 16. Back pain - intermittent. 17. Menopausal. 18. Hyperlipidemia. 19. History of phlebitis. 20. Urolithiasis history. 21. Twin A REASON FOR ADMISSION: # Cough # Pneumonia # Elevated lactic acid, leukocytosis; suggestive for sepsis # Hemoptysis # Renal insufficiency - perhaps acute HOSPITAL COURSE: Her hospital course included initial aggressive fluids noting that she never developed any significant hypotension. She was treated with IV Levaquin. When blood cultures times three were positive, she was put on Vancomycin with pharmacy calculating dose and monitoring its use. The blood cultures came back strep pneumoniae. The Vancomycin was stopped. Her white count started high as noted and came down to normal. A repeat chest x-ray on the was completely normal. Clinical exams daily did not show any significant chest findings. Again her white count started at 35 and went to 6; hemoglobin 13.3 with fluids going to 14, stabilizing there with no signs of bleeding. Her D. dimer was 1239 and VQ scan was negative for DVT. Her chemistries showed the initial low potassium of 3.4, was 3.9 by discharge with oral supplementation. Her lactic acids were 31 and 14 then 18. Procalcitonin was 5.09. Improved, she was eager for outpatient management. DISCHARGE ASSESSMENT/PROBLEM LIST (CHANGED FROM ADMISSION): # Pneumonia - bilateral lower lobe - presumptive strep pneumoniae (community acquried) # Bacteremia - strep Pneumoniae # Acute renal insufficiency - associated with above and resolved # Chest pain related to the pneumonia and cough # Hypertension PLAN: 1. Discharge 2. Medications: a) Tylenol 650 mg every four hours as needed b) Xanax 0.5 daily c) Aspirin 325 mg once a day d) Vitamin D 1,000 international units twice a day e) Vasotec 10 mg once a day f) Protonix 40 mg once a day g) K-Dur 10 mEq one a day #30 with no refill h) Effexor 75 mg once a day i) Levaquin 500 mg one a day #10, no refill j) ProAir #1 two puffs four times a day, no refill - all new scripts called to [facility] Elam in 7 to 10 days and call for appointment 4. Diet AHA 5. Activity a) Gradually increase as able PROGNOSIS: Good CONDITION: Stable, improved MTDD
--- NOTE | 2016-10-10 09:57 | PN ---
DATE OF SERVICE: 09/08/16 CHIEF COMPLAINT: "I have pneumonia." SUBJECTIVE: She was admitted through the ER from home with 7 days of progressive cough and others. In the Emergency Department she was found to have bilateral lower lobe infiltrates, an excessive white count, positive lactic acid and was felt to have pneumonia with sepsis. Fortunately, she was not hypotensive or hypoxic. She was fluid bolused, started on Levaquin, nebulized bronchodilators; along the way she has had positive blood cultures for probable staph. Vancomycin was ordered. Her initial GFR is in the 37 range and this influenced the dosing of all her antibiotics. She has progressively felt better with improvement in cough , chest discomfort, generalized malaise and fatigue. She is eating with no diarrhea and did have a bowel movement today. She has no dysuria. She is not very active because she has been in the Special Care Unit. OBJECTIVE: V/S: Temperature 97.2, pulse 102, respiratory rate 20, BP 149/82. GENERAL: Pleasant and purposeful conversation. CHEST: Clear. CARDIOVASCULAR: S1, S2 without murmur or peripheral edema. GI: Obese, nontender. PSYCHIATRIC: Alert, oriented times three. LABS/X-RAYS: White count 16.8 down from higher, hemoglobin 11.5 without signs of bleeding. Potassium 3.2 about the same as yesterday. Note, GFR is back up to 64. ASSESSMENT: # Right and left lower lobe pneumonia - community exposed # Sepsis - associated with (elevated lactic acid, leukocytosis) # Malaise # Cough # Chest pain related to above # Elevated D. dimer - with negative VQ scan # Positive blood culture; all we know is gram positive at this point - cover with Vancomycin # Hypopotassemia - note she uses Dyazide PLAN: 1. Lock IV. 2. Continue to encourage fluids. 3. Watch electrolytes. 4. Potassium oral. 5. Recheck chest x-ray tomorrow. 6. Increase activity. 7. Discussed at least 5 days of IV Vancomycin if this is a true staph bacteremia. 8. Discharge planning at this point home with family. KARTHIK
== END 2016-09-10 14:10 | disposition home or self-care (01) | DRG 193 ==
LOC: ED 20:06 → SCU 22:51
PROVIDERS: ADMIT Family Medicine; ATTEND Family Medicine
DX: J18.1 Lobar pneumonia, unspecified organism (principal); A40.3 Sepsis due to Streptococcus pneumoniae; R04.2 Hemoptysis; N28.9 Disorder of kidney and ureter, unspecified; R07.89 Other chest pain; R79.1 Abnormal coagulation profile; R53.81 Other malaise; E87.6 Hypokalemia; R74.0 Nonspecific elevation of levels of transaminase and lactic acid dehydrogenase [LDH]; I10 Essential (primary) hypertension; R50.9 Fever, unspecified; I51.7 Cardiomegaly; R00.0 Tachycardia, unspecified; E66.9 Obesity, unspecified; Z79.899 Other long term (current) drug therapy
CPT/HCPCS: 36415; 80048; 80053; 81001; 82550; 82553; 82803; 83605; 83880; 84145; 84484; 85007; 85025; 85379; 87040; 87070; 87081; 87086; 87186; 87804; 93005; 93010; 94640; 96361; 96365; 99284

== ENCOUNTER 2016-11-14 14:35 | Outpatient (CLI) ==
--- NOTE | 2016-11-14 15:52 | DI ---
EXAM: LEFT KNEE. HISTORY: Osteoarthritis FINDINGS: Left knee two-view. No comparison. There is tricompartment osteoarthritis, mild to moder ate and most noted anteriorly and medially. No fracture. Probable tiny joint effusion. Bone densi ty may be mildly decreased. Vascular calcifications are noted. Soft tissues suggest morbid obesity . IMPRESSION: Tricompartment osteoarthritis. Tiny joint effusion. No fracture identified.
== END 2016-11-14 14:36 | disposition home or self-care (01) ==
LOC: RAD 14:35
PROVIDERS: ATTEND Family Medicine
DX: M19.90 Unspecified osteoarthritis, unspecified site (principal); M25.569 Pain in unspecified knee

== ENCOUNTER 2018-03-28 10:17 | Outpatient (CLI) | payer OTHER ==
--- NOTE | 2018-03-28 11:33 | US ---
EXAM: Bilateral carotid artery Doppler History: Carotid bruits. Technique: Multiple sonographic images through the bilateral internal carotid arteries were obtained . Color duplex Doppler was used to interrogate vascular flow. Findings: The right ICA peak systolic velocity is within normal limits measuring 100 cm/sec. The right ICA/cca PSV ratio is normal at 1.4. Right vertebral artery is patent and demonstrates antegrade flow. Schwartz scale images demonstrate mild plaque buildup within the right internal carotid artery. The left ICA peak systolic velocity is within normal limits measuring 80 cm/sec. The left ICA/cca PS V ratio is normal at 0.80. The left vertebral artery is patent and demonstrates antegrade flow. Gra y scale images demonstrate mild plaque buildup within the left internal carotid artery. Impression: No significant hemodynamic stenosis of the bilateral internal carotid arteries
== END 2018-03-28 10:18 | disposition home or self-care (01) ==
LOC: RAD 10:17
PROVIDERS: ATTEND Family Medicine
DX: R09.89 Other specified symptoms and signs involving the circulatory and respiratory systems (principal)